=== PATIENT | male | born 1945 | race Caucasian/White ===

== ENCOUNTER → 2019-08-05 | Outpatient (CLI) | payer MEDICARE ==
[~2019-08-05] MED LIST: ACET-386 PO; ALLP300T PO; ASP81TEC PO; COD LIVER OIL PO; DICY10CA12 PO; FISH1CAP15 PO; GABA-488 PO; GLYB5TAB6 PO; HYDR-34 PO; LEVO175T2 PO; LSNP10T PO; METF-397 PO; OXYC-12 PO; OXYC-471 PO; PGLT30T PO; SIMV40TA2 PO; SRTR100T PO; [UNRECOGNIZED DRUG - CODE] PO
== END ==
LOC: LAB FS 09:46
PROVIDERS: ATTEND Pediatrics
DX: R30.0 Dysuria (principal)
CPT/HCPCS: 36415; 84153

== ENCOUNTER → 2019-10-10 | Outpatient (CLI) | payer MEDICARE ==
[2019-10-10 09:50] LABS: CARBON DIOXIDE 23 MMOL/L (21-32); CHLORIDE 103 MMOL/L (98-107); POTASSIUM 4.6 MMOL/L (3.6-5.0); SODIUM 138 MMOL/L (135-145)
[2019-10-10 09:51] LABS: ALANINE AMINOTRANSFERASE 24 U/L (0-55); ALKALINE PHOSPHATASE 75 U/L (40-136); BILIRUBIN,TOTAL 0.4 MG/DL (0.1-1.0); BUN/CREATININE RATIO 22; CALCIUM 9.3 MG/DL (8.5-10.1); CREATININE SERUM 1.01 MG/DL (0.60-1.30); GFR ESTIMATED > 60; GLUCOSE 82 MG/DL (70-105); TOTAL PROTEIN 6.5 GM/DL (6.4-8.2)
[2019-10-10 15:44] LABS: HDL CHOLESTEROL 38 MG/DL (40-60)
[2019-10-10 16:17] LABS: TRIGLYCERIDES 121 MG/DL (<150); VLDL CHOLESTEROL 24 MG/DL (5-40)
[2019-10-10 16:22] LABS: CHOLESTEROL 129 MG/DL (< 200)
== END ==
LOC: LAB FS 07:20
PROVIDERS: ATTEND Pediatrics
DX: E11.9 Type 2 diabetes mellitus without complications (principal); I10 Essential (primary) hypertension; E03.9 Hypothyroidism, unspecified
CPT/HCPCS: 36415; 80053; 80061; 83036

== ENCOUNTER 2020-11-09 14:00 | Day surgery (SDC) | payer MEDICARE ==
[~2020-11-09] VITALS: Ht 180 cm; Wt 95.0 kg
[2020-11-09 12:22] VITALS: BP 149/50
[2020-11-09 12:47] LABS: HEMATOCRIT 39 % (40-54); MEAN CORPUSCULAR HEMOGLOBIN 31 pg (25-34); MEAN CORPUSCULAR HGB CONC 33 g/dL (32-36); MEAN CORPUSCULAR VOLUME 94 fL (80-99); MEAN PLATELET VOLUME 9.5 fL (9.0-12.2); PLATELET COUNT 228 10^3/uL (130-400); WHITE BLOOD COUNT 7.7 10^3/uL (4.3-11.0)
[2020-11-09 13:07] LABS: PROTHROMBIN TIME PATIENT 13.8 SEC (12.2-14.7)
[2020-11-09 13:16] LABS: ALANINE AMINOTRANSFERASE 18 U/L (0-55); ALKALINE PHOSPHATASE 74 U/L (40-136); BILIRUBIN,TOTAL 0.8 MG/DL (0.1-1.0); BUN/CREATININE RATIO 20; CALCIUM 8.8 MG/DL (8.5-10.1); CARBON DIOXIDE 26 MMOL/L (21-32); CHLORIDE 105 MMOL/L (98-107); CHOLESTEROL 145 MG/DL (< 200); CREATININE SERUM 0.93 MG/DL (0.60-1.30); GFR ESTIMATED > 60; GLUCOSE 109 MG/DL (70-105); HDL CHOLESTEROL 45 MG/DL (40-60); POTASSIUM 4.4 MMOL/L (3.6-5.0); SODIUM 137 MMOL/L (135-145); TOTAL PROTEIN 6.5 GM/DL (6.4-8.2); TRIGLYCERIDES 89 MG/DL (<150); VLDL CHOLESTEROL 18 MG/DL (5-40)
[~2020-11-09 14:00] MED LIST changes: +CLOP75TA69 PO; +FLUT1BLS3 IH; +GLIM4TAB5 PO; +HEParin (CATH LAB) 1,000 ML IV ONE; +HEParin (CATH LAB) 2,000 ML IV ONE; +HEParin 1000 UNIT/ML (10ML VIAL) FOR BOLUS ONE; +HEParin DRIP 25000 UNIT/500ML 500 ML IV ONE; +LIDOCAINE 1% INJ 20 ML 20 ML VIAL ONE; +MIDAZOLAM 5 MG/5 ML (VERSED) VIAL ONE; +NS IV 1000 ML 1,000 ML IV SCH; +NS IV 1000 ML 1,000 ML ONE; -OXYC-471 PO; +OXYC1TAB11 PO; +fentaNYL INJ 100 MCG/2 ML AMP ONE
[2020-11-09] MEDS ORDERED: LIDOCAINE 1% INJ 20 ML 20 ML VIAL ONE (14:06)
--- NOTE | 2020-11-09 14:34 | Cardiac Procedure Note-CS/ASA ---
Pre-Procedure Note Pre-Op Procedure Note H&P Reviewed The H&P was reviewed, patient examined and no changes noted. Date H&P Reviewed: November 09, 2020 Time H&P Reviewed: 13:40 Conscious Sedation Pre-Proced Time 13:40 ASA Score 3 For ASA 3 and 4: Consider anesthesia and medical clearance. Also, for patients with a history of failed moderate sedation consider anesthesia. Airway Lungs Heart ASA score ASA 1: a normal healthy patient ASA 2: a patient with a mild systemic disease (mid diabetes, controlled hypertension, obesity ASA 3: a patient with a severe systemic disease that limits activity (angina, COPD, prior Myocardial infarction) ASA 4: a patient with an incapacitating disease that is a constant threat to life (CHF, renal failure) ASA 5: a moribund patient not expected to survive 24 hrs. (ruptured aneurysm) ASA 6: a declared brain- patient whose organs are being harvested. For emergent operations, add the letter E after the classification Mallampati Classification Grade 2 Sedation Plan Analgesia, Amnesia, Plan communicated to team members, Discussed options with patient/fam, Discussed risks with patient/fam The patient is an appropriate candidate to undergo the planned procedure, sedation, and anesthesia. The patient immediately re-assessed prior to indication. MICHELLE MUSTAFA MD FACP FAC CCDS November 09, 2020 14:34
[2020-11-09 14:45] VITALS: BP 98/51
[2020-11-09] MEDS ORDERED: PATIENT MAY USE OWN MEDS, ALL PO SCH (14:45)
[2020-11-09] MEDS ORDERED: NS IV 1000 ML 1,000 ML IV SCH (14:45)
--- NOTE | 2020-11-09 14:47 | CARDIAC CATHETERIZATION ---
DATE OF SERVICE: 11/09/2020 CARDIAC CATHETERIZATION REPORT INDICATION FOR PROCEDURE: The patient is a 75-year-old gentleman, who has had symptoms of chest discomfort and he had a myocardial perfusion imaging study done elsewhere, which was abnormal. He was sent to us for further evaluation. Cardiac catheterization was recommended. Informed consent was obtained. DESCRIPTION OF PROCEDURE: He was brought to the cardiac catheterization laboratory in a fasting state. Right groin was prepared and draped in the usual sterile fashion. Lidocaine 1% was used for local anesthesia. Modified Seldinger technique used to advance a 5-Beninese sheath into the right femoral artery. A 5-Beninese JL4 catheter was used for left coronary angiography, 5-Beninese JR4 catheter was used for right coronary angiography, 5-Beninese pigtail catheter was used for left heart catheterization and left ventricular angiography. Subsequently, the balloon pump was placed because of critical distal left main coronary artery stenosis that involved the ostia of the left anterior descending and the left circumflex arteries as well. BALLOON PUMP INSERTION: The 5-Beninese sheath was exchanged over a wire for a 10-Beninese sheath and a balloon pump catheter was advanced over a guidewire such that the tip of the balloon is just distal to the origin of the left subclavian vein. The wire was removed. The catheter was attached to the pump. 1:1 augmentation was achieved. He tolerated the procedure well. The catheter was sutured in place to the right thigh. The patient received intravenous heparin 3000 units bolus and an infusion of 1000 per hour subsequently. HEMODYNAMICS: Left ventricular end-diastolic pressure following coronary angiography was 13 mmHg. There was no significant pressure gradient on pullback across the aortic valve. Ascending aortic pressure was 114/52 with a mean of 79 mmHg. CORONARY ANGIOGRAPHY: Left main coronary artery exhibits 99% distal stenosis. The ostia of the left anterior descending and the left circumflex artery exhibits 99% stenosis. The right coronary artery is dominant. It shows mild plaque. LEFT VENTRICULAR ANGIOGRAPHY: Left ventricular angiography was carried out in the right anterior oblique projection. Global left ventricular systolic function is normal. No regional wall motion abnormalities seen in this view. Left ventricular ejection fraction is approximately 60%. CONCLUSIONS: 1. Critical stenosis of the distal left main coronary and the ostia of the left anterior descending and the left circumflex arteries. 2. Normal global left ventricular systolic function with an ejection fraction of 60%. 3. Left ventricular end-diastolic pressure at the upper limit of normal. 4. Balloon pump insertion. DISCUSSION AND RECOMMENDATIONS: The patient was experiencing chest discomfort with dye injections into the coronary. He has also had frequent symptoms at home. Accordingly, because of critical left main and left anterior descending and left circumflex artery stenosis in the presence of unstable symptoms, we felt that a balloon pump should be used to stabilize symptoms. This was done. We spoke with Dr. London of the cardiovascular surgical services at [facility], who agreed with the balloon pump and who has accepted the patient in transfer for consideration of coronary artery bypass surgery. I have spoken with the patient and his . They are also concur. Arrangements are being made at the time of this dictation. Job ID: [id number] DocumentID: [id number] Dictated Date: 11/09/2020 14:26:58 [employer] Repair Machinist Date: 11/09/2020 14:47:37 Dictated By: MICHELLE MUSTAFA MD, MA, FACP, FACC, MTDD
[2020-11-09 15:00] VITALS: BP 134/46
[2020-11-09 15:15] VITALS: BP 106/60
[2020-11-09 15:30] VITALS: BP 112/50
[2020-11-09 15:45] VITALS: BP 129/52
== END 2020-11-09 16:05 | disposition short-term general hospital (02) ==
LOC: CATH 14:00 → ICU 14:39 → CATH 16:05
PROVIDERS: ATTEND Internal Medicine Cardiovascular Disease
DX: I25.10 Atherosclerotic heart disease of native coronary artery without angina pectoris (principal); I10 Essential (primary) hypertension; E11.9 Type 2 diabetes mellitus without complications; K58.9 Irritable bowel syndrome, unspecified; E78.5 Hyperlipidemia, unspecified; J44.9 Chronic obstructive pulmonary disease, unspecified; Z79.891 Long term (current) use of opiate analgesic; Z79.899 Other long term (current) drug therapy; Z79.890 Hormone replacement therapy; Z79.02 Long term (current) use of antithrombotics/antiplatelets; Z80.9 Family history of malignant neoplasm, unspecified; Z87.891 Personal history of nicotine dependence
CPT/HCPCS: 33967; 80053; 80061; 85027; 85610; 85730; 87081; 93458; C1894; 36415

== ENCOUNTER → 2022-03-14 | Outpatient (CLI) | payer MEDICARE, OTHER ==
[~2022-03-14] MED LIST changes: -HEParin (CATH LAB) 1,000 ML IV ONE; -HEParin (CATH LAB) 2,000 ML IV ONE; -HEParin 1000 UNIT/ML (10ML VIAL) FOR BOLUS ONE; -HEParin DRIP 25000 UNIT/500ML 500 ML IV ONE; -LIDOCAINE 1% INJ 20 ML 20 ML VIAL ONE; -MIDAZOLAM 5 MG/5 ML (VERSED) VIAL ONE; -NS IV 1000 ML 1,000 ML IV SCH; -NS IV 1000 ML 1,000 ML ONE; +REGADENOSON 0.4 MG/5 ML SYR (LEXISCAN) IV ONE; -fentaNYL INJ 100 MCG/2 ML AMP ONE
[2022-03-14] MEDS: CATHETER FLUSH 10 ML SYR IVP PRN ×2 (07:59→09:21)
[2022-03-14 09:20] VITALS: BP 163/84
--- NOTE | 2022-03-15 11:05 | STRESS TEST ---
DATE OF SERVICE: 03/14/2022 RESTING AND POST REGADENOSON TECHNETIUM-99M TETROFOSMIN SPECT CT IMAGING ORDERING PHYSICIAN: Dr. Harris. PRIMARY PHYSICIAN: Dr. Baca. CLINICAL DIAGNOSIS: Coronary artery disease. Baseline images were carried out after injection of 10.99 mCi of technetium-99m Tetrofosmin. This was followed by 0.4 mg regadenoson and 32.7 mCi of technetium-99m Tetrofosmin for stress imaging. The electrocardiogram showed sinus bradycardia with right bundle branch block. The electrocardiogram did not change significantly with the regadenoson infusion. Review of images at rest and following stress does not indicate any significant perfusion defects consistent with myocardial ischemia or infarction. Gated images show normal global left ventricular systolic function with normal regional wall motion. Left ventricular ejection fraction is calculated to be 59%. CONCLUSIONS: 1. No evidence of any significant myocardial ischemia or infarction on this study. 2. Normal regional wall motion. 3. Normal global left ventricular systolic function with a calculated ejection fraction of 59%. Job ID: [id number] DocumentID: [id number] Dictated Date: 03/15/2022 09:34:32 [employer] As[employer]er Date: 03/15/2022 11:04:40 Dictated By: MICHELLE HARRIS MD, MA, FACP, FACC,
== END ==
LOC: CARD 08:30
PROVIDERS: ATTEND Internal Medicine Cardiovascular Disease
DX: I25.10 Atherosclerotic heart disease of native coronary artery without angina pectoris (principal)
CPT/HCPCS: 78452; 93017; A9502

== ENCOUNTER 2023-01-09 19:15 | Emergency (ER) | payer MEDICARE, OTHER ==
[~2023-01-09] VITALS: Ht 180 cm; Wt 89.8 kg
[~2023-01-09 19:15] MED LIST changes: +CLOP-31 PO; -CLOP75TA69 PO; -REGADENOSON 0.4 MG/5 ML SYR (LEXISCAN) IV ONE
[2023-01-09 20:24] VITALS: BP 124/94
--- NOTE | 2023-01-09 21:22 | ED Fall/Injury ---
General Chief Complaint: Back Problems Stated Complaint: FELL, SHARP BACK PAINS Nursing Triage Note: Patient ambulatory to ER via POV at bedside w c/o R upper back pain that wraps around to R shoulder and R arm. Patient reports he fell last and caught himself with his R arm. xrays were done at [facility] yesterday. Patient states no pain while sitting but if he moves a certain way it sends a sharp pain through back and shoulder/arm. Source: patient, family Exam Limitations: no limitations History of Present Illness Date Seen by Provider: Jan 09, 2023 Time Seen by Provider: 20:10 Initial Comments This 77-year-old gentleman presents to the emergency room by [employer] by his with concerns about pain in the right upper back medial and inferior to the right scapula. This pain developed after he tripped on a pipe and fell last , January 04. He also struck his head and has had increase in his chronic headaches since then. He denies any loss of consciousness or neurologic deficits. He reports falling onto his right arm that was against his right chest. He has some tenderness on the right lateral chest as well. He presented to his primary care provider and x-rays of the shoulder were performed. He reports these imaging studies were negative. He denies any extremity weakness or bowel or bladder dysfunction. He has chronic lower back pain that does not appear to be significantly changed. He takes Excedrin each morning and evening primarily due to headaches. He took a couple doses of ibuprofen as well without much benefit. He denies use of any blood thinning medications except for aspirin 81 mg daily. He additionally reports an ongoing pain in the left groin which has been under work-up by Dr. Richardson. He has a pending referral to gastroenterology in [place]. He notes imaging studies performed at an outside facility previously did not reveal any pathology. Care of this patient was delayed and length of stay prolonged secondary to a concurrent postoperative hemorrhage in the ER and unplanned EMR downtime. Allergies and Home Medications Allergies Coded Allergies: No Known Drug Allergies (Unverified , 06/22/11) Patient Home Medication List Home Medication List Reviewed: Yes Acetaminophen/Caffeine (Excedrin Tension Headache Tab) 1 Each Tablet, 2 EACH PO TID, (Reported) Entered as Reported by: RAUDEL BLACK on 06/22/11 5144 Allopurinol (Zyloprim) 300 Mg Tab, 300 MG PO DAILY, (Reported) Entered as Reported by: RAUDEL BLACK on 06/22/11 140 Aspirin (Aspirin Ec 81 Mg) 81 Mg Tabec, 81 MG PO DAILY, (Reported) Entered as Reported by: RAUDEL BLACK on 06/22/11 140 Cimetidine (Tagamet) 400 Mg Tablet, 400 MG PO DAILY, (Reported) Entered as Reported by: RAUDEL BLACK on 06/22/11 140 Clopidogrel Bisulfate (Plavix) 75 Mg Tablet, 75 MG PO DAILY, (Reported) Entered as Reported by: MIRA QUACH on 11/09/20 1234 Fluticasone/Umeclidin/Vilanter (Trelegy Ellipta 100-62.5-25) 1 Each Blst.w.dev, 1 EACH IH DAILY, (Reported) Entered as Reported by: MIRA QUACH on 11/09/20 1234 Glimepiride (Glimepiride) 4 Mg Tablet, 2 MG PO BID, (Reported) Entered as Reported by: MIRA QUACH on 11/09/20 1234 Hydrocodone/Acetaminophen (Hydrocodone-Acetamin 5-325 mg) 5 Mg-325 Mg Tablet, 1 TAB PO Q4H PRN for PAIN-MODERATE (5-7) Prescribed by: LAUREN DE JESUS on 01/09/23 2155 Levothyroxine Sodium (Synthroid) 175 Mcg Tablet, 175 MCG PO DAILY, (Reported) Entered as Reported by: RAUDEL BLACK on 06/22/11 140 Lisinopril (Zestril) 10 Mg Tab, 10 MG PO DAILY, (Reported) Entered as Reported by: RAUDEL BLACK on 06/22/11 140 Metformin HCl (Metformin HCl) 500 Mg Tablet, 500 MG PO BID, (Reported) Entered as Reported by: JHON GORE on 04/16/15 0941 Oxycodone HCl/Acetaminophen (Oxycodone-Acetaminophen 5-325) 1 Each Tablet, 1-2 TAB PO Q4-6HRS Prescribed by: TED ALDRICH on 04/21/15 1310 Sertraline Hcl (Zoloft) 100 Mg Tab, 150 MG PO DAILY, (Reported) Entered as Reported by: RAUDEL BLACK on 06/22/111408 Simvastatin (Zocor) 40 Mg Tablet, 40 MG PO DAILY, (Reported) Entered as Reported by: RAUDEL BLACK on 06/22/111408 [Cod Liver Oil] , 1 TAB PO DAILY, (Reported) Entered as Reported by: RAUDEL BLACK on 06/22/111408 Review of Systems Review of Systems Constitutional: no symptoms reported Eyes: No Symptoms Reported Ears, Nose, Mouth, Throat: no symptoms reported Respiratory: no symptoms reported Cardiovascular: no symptoms reported Gastrointestinal: no symptoms reported Genitourinary: no symptoms reported Musculoskeletal: see HPI Skin: no symptoms reported Psychiatric/Neurological: No Symptoms Reported Past Dvbwwko-Jpoiyd-Kbquey Hx Patient Social History Tobacco Use?: No Substance use?: No Alcohol Use?: No Past Medical History Surgeries: Yes CABG, Orthopedic (Back surgery x2) Respiratory: No Cardiac: Yes (HEART CATH IN LAST 5YRS [place]) Coronary Artery Disease (Status post CABG) Neurological: Yes (TAKES EXCEDRIN) Sexually Transmitted Disease: No HIV/AIDS: No Genitourinary: Yes Kidney Stones Gastrointestinal: Yes Gastroesophageal Reflux Musculoskeletal: Yes Chronic Back Pain Endocrine: Yes Diabetes, Non-Insulin dep HEENT: No Loss of Vision: Bilateral Hearing Impairment: Denies Cancer: No Psychosocial: No Depression Blood Disorders: No Adverse Reaction/Blood Tranf: No (HAS TRANSFUSION WITH BACK SURGERY, NO REACTION) Physical Exam Vital Signs Vital Signs - First Documented 01/09/23 20:24 Temp 35.3 Pulse 58 Resp 18 B/P (MAP) 124/94 (104) Pulse Ox 96 O2 Delivery Room Air Capillary Refill : Less Than 3 Seconds Height, Weight, BMI Height: 5'11.00" Weight: 239lbs. oz. [id number]; 27.00 BMI Method: General Appearance: WD/WN, mild distress (Intermittent sharp pain with obvious pain response) HEENT: PERRL/EOMI, normal ENT inspection Neck: normal inspection Cardiovascular: regular rate, rhythm, no edema, no murmur Respiratory: lungs clear, normal breath sounds, other (Right lateral chest wall tender to palpation without visible injury) Gastrointestinal: normal bowel sounds, non tender, soft; No distended; other (Area of stated pain in the left lower quadrant is nontender to palpation) Back: normal inspection, other (Relative point tenderness inferior and medial to the right scapula in the upper back) Extremities: non-tender, normal inspection, no pedal edema Neurologic/Psychiatric: no motor/sensory deficits, alert, normal mood/affect, oriented x 3 Skin: normal color, warm/dry Zohra Coma Score Best Eye Response: (4) Open Spontaneously Best Verbal Response: (5) Oriented Best Motor Response: (6) Obeys Commands Zohra Total: 15 Progress/Results/Core Measures Results/Orders My Orders Orders - LAUREN PERSON MD Ct Head/Cervical Spine Wo (01/09/23 21:12) Ct Chest/Abdomen/Pelvis Wo (01/09/23 21:12) Hydrocodone/Apap 5/325 Tablet (Lortab 5 (01/09/23 22:00) Medications Given in ED Current Medications Medications Dose Ordered Sig/Mary Lou Route Start Time Stop Time Status Last Admin Dose Admin Acetaminophen/ Hydrocodone Bitart 1 ea ONCE ONCE PO 01/09/23 22:00 01/09/23 22:01 DC 01/09/23 22:02 1 EA Vital Signs/I&O 01/09/23 20:24 Temp 35.3 Pulse 58 Resp 18 B/P (MAP) 124/94 (104) Pulse Ox 96 O2 Delivery Room Air Blood Pressure Mean: 104 Progress Progress Note : Progress Note Report was received from nursing staff at 1936. Care was delayed due to unscheduled EMR downtime and emergent need to manage a postoperative hemorrhage. Patient was interviewed and examined at approximately 2009. CT imaging studies were ordered on paper using downtime protocol. Patient declined any pain medications. Vital signs were stable and unremarkable. CT imaging studies of the chest, abdomen, and pelvis were reviewed by me. An obvious right rib fracture was identified by my interpretation without any evidence of pneumothorax. [facility] CT report was reviewed. An additional rib fracture was identified by the radiologist. No visceral injuries were identified. I did make note of significant degenerative disease in the spine. Neither I nor the radiologist appreciated any source of his left lower quadrant pain on our interpretations. It was speculated that this may be radicular in nature, especially since there was no tenderness to palpation in the region where pain was reported. I advised further discussion with his primary care provider and consideration of an MRI of the thoracic and lumbar spine. I offered gabapentin as a trial therapy for this pain which he declined. He will discuss with his primary care provider. CT of the head and cervical spine [facility] reports were reviewed. No acute injuries were identified. A dose of hydrocodone was provided for treatment of his fracture associated pain. A prescription was also provided. We reviewed care instructions for care of rib fractures. See discharge instructions for further discussion. Diagnostic Imaging Diagonstic Imaging: CT Plain Films/CT/US/NM/MRI: c-spine, head Comments [facility] report of CT head and cervical spine reviewed. Age-related changes noted without any evidence of acute injury. Diagonstic Imaging: CT Plain Films/CT/US/NM/MRI: chest, abdomen, pelvis Comments [facility] report of CT chest, abdomen, and pelvis reviewed by me. Fractures of the right sixth and seventh ribs were reported. No other serious injuries were identified. No source of left lower quadrant pain was noted. Degenerative changes of the spine were noted. Departure Impression Primary Impression: Ribs, multiple fractures Qualified Codes: S22.41XA - Multiple fractures of ribs, right side, initial encounter for closed fracture Additional Impressions: Fall on same level Qualified Codes: W18.30XA - Fall on same level, unspecified, initial encounter Acute headache Qualified Codes: R51.9 - Headache, unspecified Left lower quadrant pain Disposition: 01 HOME, SELF-CARE Condition: Stable Departure-Patient Inst. Decision time for Depature: 21:45 Referrals: LUBA RICHARDSON MD (PCP/Family) Primary Care Physician Patient Instructions: Rib fractures in adults Add. Discharge Instructions: Try to stay ahead of your pain so that you are able to breathe freely and deeply. You may use hydrocodone as prescribed. If 1 tablet is too strong, you may break them in half. For more mild pain, you may use Tylenol (acetaminophen). Hydrocodone may cause constipation, so you may wish to use a stool softener while on hydrocodone. Hydrocodone may cause drowsiness, so use with caution. Do not drive, operate machinery, or make important decisions while on hydrocodone. Follow-up with your primary care provider within the next 1 to 2 weeks. Discuss options for working up and treating the pain in your left lower abdomen. If this pain is related to nerve impingement in your spine, using gabapentin or another medication intended for nerve pain may be helpful. Exercise deep breathing several times per hour to encourage good air movement in your lungs and prevent pneumonia. Return to the emergency room if you have worsening symptoms despite following these instructions. All discharge instructions reviewed with patient and/or family. Voiced understanding. Scripts Hydrocodone/Acetaminophen (Hydrocodone-Acetamin 5-325 mg) 5 Mg-325 Mg Tablet 1 TAB PO Q4H PRN for PAIN-MODERATE (5-7), #30 TAB Prov: LAUREN PERSON MD 01/09/23 Copy Copies To 1: LUBA RICHARDSON MD, JOSHUA T MD Jan 09, 2023 21:22
[2023-01-09] MEDS ORDERED: ACHD5005 PO (21:54)
[2023-01-09] MEDS ORDERED: HYDROcodone/ACETAMINOPHEN 5 MG/325 MG TABLET PO ONE (22:00)
--- NOTE | 2023-01-09 22:11 | Diagnostic Imaging Report ---
PROCEDURE: CT head and CT cervical spine without contrast. TECHNIQUE: Multiple contiguous axial images were obtained through the brain and cervical spine without the use of intravenous contrast. Sagittal and coronal reformations through the cervical spine were then performed. Auto Exposure Controls were utilized during the CT exam to meet ALARA standards for radiation dose reduction. INDICATION: Fall, headache EXAMINATION: CT brain, CT cervical spine 01/09/2023 FINDINGS: Brain: FINDINGS: There is no evidence for acute hemorrhage or infarct. There is no mass, mass effect, midline shift or hydrocephalus. The paranasal sinuses and mastoid air cells demonstrate no acute abnormality. IMPRESSION: No acute intracranial process. CT cervical spine: There is normal height and alignment of the vertebral bodies. No fractures or subluxations appreciated. Chronic changes seen about the dens. Multilevel diffuse degenerative findings noted with no acute fractures identified. Lung apices clear. Prevertebral soft tissues unremarkable. IMPRESSION: 1. No acute process in the cervical spine. Dictated by: Dictated on workstation # [id number]
--- NOTE | 2023-01-09 22:14 | Diagnostic Imaging Report ---
PROCEDURE: CT chest, abdomen, and pelvis without contrast. TECHNIQUE: Multiple contiguous axial images were obtained through the chest, abdomen, and pelvis without the use of intravenous contrast. Auto Exposure Controls were utilized during the CT exam to meet ALARA standards for radiation dose reduction. INDICATION: Fall, low back pain, chest pain, pelvic pain EXAMINATION: CT chest, abdomen, and pelvis 01/09/23 FINDINGS: CHEST: There is no mediastinal or hilar adenopathy. No pericardial or pleural effusions. Atherosclerotic disease noted. Small hiatal hernia. Within the lungs, scattered coarsened interstitia noted predominantly in the right lung likely chronic. Mild atypical infiltrate not excluded. Left lung clear. Abdomen and pelvis: Nonopacified liver, spleen, gallbladder unremarkable. Pancreas, adrenal glands normal. No nephrolithiasis. No hydronephrosis with kidneys unremarkable for acute abnormality. No ascites. No free air. Diverticulosis noted. There is no evidence for acute diverticulitis. Appendix unremarkable. There is diffuse atherosclerotic disease. Postoperative changes noted in the lumbar spine. No gross acute abnormality is appreciated. Sternotomy wires noted with no acute thoracic vertebral body abnormality. IMPRESSION: 1. No acute posttraumatic sequela within the chest, abdomen and pelvis. Incidental findings as detailed above. Dictated by: Dictated on workstation # [id number]
== END 2023-01-09 22:05 | disposition home or self-care (01) ==
LOC: EDUNIT# 19:15 → ER FS 19:21
DX: S22.41XA Multiple fractures of ribs, right side, initial encounter for closed fracture (principal); R51.9 Headache, unspecified; R10.32 Left lower quadrant pain; Z98.61 Coronary angioplasty status; Z95.1 Presence of aortocoronary bypass graft; Z98.890 Other specified postprocedural states; Z79.82 Long term (current) use of aspirin; W01.198A Fall on same level from slipping, tripping and stumbling with subsequent striking against other object, initial encounter
CPT/HCPCS: 70450; 71250; 72125; 74176